=== PATIENT | female | born 1950 | race African-American/Black ===

== ENCOUNTER 2021-03-06 14:44 | Emergency (ER) | payer BC ==
[~2021-03-06] VITALS: Ht 157.5 cm; Wt 90.7 kg
[~2021-03-06 14:44] MED LIST: ASPIRIN EC81 M1; CALICUM 500+D1 EACH PO; CENTRUM SILVER1 EAC1 PO; LOZOL; NORCO 5-325 TA1 EACH PO; ZOFRAN ODT4 MG PO
[2021-03-06] MEDS ORDERED: ASA81BEC PO (15:01)
[2021-03-06] MEDS ORDERED: LEVO-T25 MCG PO (15:01)
[2021-03-06] MEDS ORDERED: ALLOPURINOL 10100 M2 (15:01)
[2021-03-06] MEDS ORDERED: COZAAR 25 MG TA25 MG PO (15:01)
[2021-03-06] MEDS ORDERED: COLCRYS0.6 MG PO (15:01)
[2021-03-06] MEDS ORDERED: PROPRANOLOL 20M20 M1 (15:02)
[2021-03-06] MEDS ORDERED: NORVASC5 MG PO (15:02)
[2021-03-06 17:19] VITALS: BP 150/80
== END 2021-03-06 17:20 | disposition home or self-care (01) ==
LOC: M.ERS 14:44
DX: S30.0XXA Contusion of lower back and pelvis, initial encounter (principal); S00.93XA Contusion of unspecified part of head, initial encounter; I10 Essential (primary) hypertension; Z79.82 Long term (current) use of aspirin; Z79.899 Other long term (current) drug therapy; Z88.1 Allergy status to other antibiotic agents; W18.39XA Other fall on same level, initial encounter; Y93.89 Activity, other specified; Y92.89 Other specified places as the place of occurrence of the external cause; Y99.8 Other external cause status